=== PATIENT | female | born 1990 | race Caucasian/White ===

== ENCOUNTER → 2020-04-08 12:42 | Outpatient (ROUT) | payer OTHER, SELFPAY ==
[2020-04-08 13:13] LABS: T4 Total Thyroxine 8.19 ug/dL (5.5-11.0)
[2020-04-08 13:27] LABS: Thyroid Stimulating Hormone 2.45 uIU/mL (0.47-4.68)
== END ==
PROVIDERS: Visit Provider Nurse Practitioner Obstetrics & Gynecology
DX: E03.9 Hypothyroidism, unspecified (principal)
CPT/HCPCS: 84436; 84443

== ENCOUNTER → 2021-02-10 11:06 | Outpatient (CLI) | payer OTHER, SELFPAY ==
--- NOTE | 2021-02-10 11:11 | DI.RAD.S_ITS ---
PROCEDURE: XR SHOULDER LT MIN 2V INDICATIONS: SHOULDER PAIN TECHNIQUE: 3 views of the shoulder were acquired. COMPARISON: None. FINDINGS: Bones: No fractures or dislocations. No suspicious bony lesions. Visualized ribs appear intact. Soft tissues: No suspicious soft tissue calcifications. IMPRESSION: No acute abnormality. Dictated by: Joseph Boudreaux M.D. on 02/10/2021 at 11:53 Approved by: Joseph Boudreaux M.D. on 02/10/2021 at 11:54
== END ==
PROVIDERS: Referring Provider Family Medicine; Visit Provider Family Medicine
DX: M25.512 Pain in left shoulder (principal)
CPT/HCPCS: 73030

== ENCOUNTER → 2022-02-06 13:21 | Outpatient (CLI) | payer OTHER, SELFPAY ==
--- NOTE | 2022-02-06 13:24 | DI.US.S_ITS ---
ULTRASOUND OF LEFT BREAST AND AXILLA: 02/06/2022 CLINICAL: Palpable left breast lump. [facility] and real-time ultrasound of the left breast axilla were performed. Zavaleta scale images of the real-time examination were reviewed. There is a 2.2 cm x 1 cm x 2.3 cm wider than tall oval mass in the left breast at 9 o'clock in the retroareolar region 1 cm from the nipple. This oval mass is hypoechoic and heterogeneously echogenic with a well-defined boundary and no posterior acoustic shadowing or enhancement. This correlates as palpated, with mammography findings, and area of clinical concern. Color flow imaging demonstrates that there is vascularity present. No significant abnormalities were seen sonographically in the left axilla. IMPRESSION: SUSPICIOUS OF MALIGNANCY The 2.2 cm x 1 cm x 2.3 cm wider than tall oval mass in the left breast is at a low suspicion for malignancy. An ultrasound guided biopsy is recommended. Also, the patient will be scheduled to return for right breast ultrasound for a separate, incidental finding seen in the right breast on today's mammographic examination. Findings and recommendations were discussed with the patient by Dr. Wynn during today's examination. This exam was interpreted at Station ID: [id number]. Electronically Signed By: Cezar Stoner M.D. aty/:02/06/2022 15:57:38 letter sent: Biopsy Required Ultrasound BI-RADS: 4a Low suspicion for malignancy
--- NOTE | 2022-02-06 13:24 | DI.MG.S_ITS ---
BILATERAL DIGITAL DIAGNOSTIC MAMMOGRAM 3D/2D: 02/06/2022 CLINICAL: Left breast lump. Baseline. No prior exams were available for comparison. Both breasts are heterogeneously dense, which may obscure small masses (category c / 51-75% glandular tissue). There is a 0.9 cm oval equal density focal asymmetry in the right breast at 12 o'clock posterior depth. There is a 1.4 cm x 2.2 cm oval equal density mass with punctate calcifications in the left breast at 9 o'clock in the retroareolar region. This correlates as palpated, with area of clinical concern, and skin marker. No other significant masses or calcifications are seen in either breast. IMPRESSION: INCOMPLETE: NEEDS ADDITIONAL IMAGING EVALUATION The 1.4 cm x 2.2 cm oval equal density mass in the left breast at 9 o'clock in the retroareolar region correlates with palpable area of concern and is indeterminate. An ultrasound is recommended for further evaluation and is scheduled to immediately follow this examination. The 0.9 cm oval equal density focal asymmetry in the right breast at 12 o'clock posterior depth resembles a cyst or a lymph node and is indeterminate. An ultrasound is recommended for further evaluation but could not be accomplised today. This will be scheduled for a later date. This exam was interpreted at Station ID: [id number]. NOTE: For mammograms, a report in lay terms will be sent to the patient. Approximately 15% of breast malignancies will not be visualized mammographically. In the management of a palpable breast mass, a negative mammogram must not discourage biopsy of a clinically suspicious lesion. Electronically Signed By: Cezar Stoner M.D. aty/:02/06/2022 15:53:36 ACR BI-RADS Category 0: Incomplete 3340F
== END ==
PROVIDERS: Referring Provider Nurse Practitioner Obstetrics & Gynecology; Visit Provider Nurse Practitioner Obstetrics & Gynecology
DX: N63.22 Unspecified lump in the left breast, upper inner quadrant (principal); R92.8 Other abnormal and inconclusive findings on diagnostic imaging of breast
CPT/HCPCS: 76642; 77066; G0279

== ENCOUNTER → 2022-02-14 12:51 | Outpatient (CLI) | payer OTHER, SELFPAY ==
--- NOTE | 2022-02-14 | DI.US.S_ITS ---
LIMITED ULTRASOUND OF RIGHT BREAST AND AXILLA: 02/14/2022 CLINICAL: Patient returns today to evaluate an asymmetry in the right breast. Comparison is made to exam dated: 02/06/2022 mammogram - [facility]. Ultrasound of the right breast 12 o'clock, and axilla regions was performed. There is a 0.9 cm x 0.7 cm x 0.6 cm oval mass with a smooth internal wall in the right breast at 12 o'clock posterior depth 9 cm from the nipple. This mass is hypoechoic with a well-defined boundary and posterior acoustic enhancement. This correlates with mammography findings. Color flow imaging demonstrates that there is no vascularity present. No significant abnormalities were seen sonographically in the right axilla. IMPRESSION: PROBABLY BENIGN The 0.9 cm x 0.7 cm x 0.6 cm mass in the right breast most likely is a complicated cyst, less likely fibroadenoma, but is probably benign. A follow-up right ultrasound in 6 months is recommended to demonstrate stability. Findings and recommendations were conveyed to the patient at time of exam. This exam was interpreted at Station ID: [id number]. Electronically Signed By: Dorys ramirez/:02/14/2022 13:57:51 letter sent: Followup Recommended Ultrasound BI-RADS: 3 Probably benign
== END ==
PROVIDERS: Referring Provider Nurse Practitioner Obstetrics & Gynecology; Visit Provider Nurse Practitioner Obstetrics & Gynecology
DX: R92.8 Other abnormal and inconclusive findings on diagnostic imaging of breast; N63.15 Unspecified lump in the right breast, overlapping quadrants
CPT/HCPCS: 76642

== ENCOUNTER → 2022-03-06 14:18 | Outpatient (CLI) | payer OTHER, SELFPAY ==
--- NOTE | 2022-03-06 | PATH_ITS ---
[facility] Accession Number: [id number] No. of containers..01 Tissue . 01 Material submitted: . breast - LEFT BREAST 9:00 RETRPAREOLAR MASS . 01 Diagnosis: Left Breast, 9 o'clock, Retroareaolar, Image-Guided Core Biopsy: Benign fibroepithelial tumor, consistent with tubular adenoma. MRV 03/12/2022 1510 Local . 01 Comment: *Immunostains to p63, ER, and S100 are performed on block A1, with the controls stained appropriately. The tumor exhibits the following results: p63 shows positive staining around cell nests; estrogen receptor is variably positive; S100 is variably positive primarily on the peripheral cells. These findings support the morphologic suspicion of a tubular adenoma and strongly rule against involvement by an invasive carcinoma or a microglandular adenosis. . * This test was developed and its performance characteristics determined by [employer]. It has not been cleared or approved by the U.S. Food and Drug Administration. The FDA has determined that such clearance or approval is not necessary. This test is used for clinical purposes. It should not be regarded as investigational or for research. . 01 Electronically signed: . Amanda Cullen MD, Pathologist NPI- [id number] . 01 Gross description: . The specimen is received in formalin labeled with the patient's name, , and BX breast, and consists of multiple pale yellow soft tissue fragments aggregating to 1.9 x 1.3 x 0.2 cm. The specimen is filtered into a biopsy bag, inked green and submitted entirely in cassette A1. . The specimen was removed on 03/06/2022 at approximately 1506. Time in formalin not provided. Cold ischemic time cannot be calculated. Total fixation time is approximately 29 hours. ([id number]) /MRV 03/07/2022 1048 Local . 01 Pathologist provided ICD-10: N63.22 . 01 CPT . 547737, J95633, O07301 Specimen Comment: A courtesy copy of this report has been sent to [facility] Performed at: 01 [facility] [address] [place] [address], [place], [place] [id number] MD Geovanni Schwartz MD Phone: [phone]
--- NOTE | 2022-03-06 | DI.MG.S_ITS ---
UNILATERAL LEFT DIGITAL DIAGNOSTIC MAMMOGRAM 3D/2D POST-EXCISIONAL BIOPSY: 03/06/2022 CLINICAL: Left post clip. There is a biopsy marker in the area of biopsy in the left breast. IMPRESSION: POST PROCEDURE MAMMOGRAM FOR MARKER PLACEMENT A biopsy marker in the area of biopsy. This exam was interpreted at Station ID: [id number]. NOTE: For mammograms, a report in lay terms will be sent to the patient. Approximately 15% of breast malignancies will not be visualized mammographically. In the management of a palpable breast mass, a negative mammogram must not discourage biopsy of a clinically suspicious lesion. Electronically Signed By: Jael Wynn M.D. fx/:03/06/2022 15:38:10 ACR BI-RADS Category Post-procedure mammogram for marker placement
--- NOTE | 2022-03-06 | DI.US.S_ITS ---
ULTRASOUND GUIDED BIOPSY LEFT BREAST USING VACUUM DEVICE WITH POST MAMMOGRAPHIC AND ULTRASOUND IMAGIN03/06/2022 CLINICAL: Left breast mass. PATIENT CONSENT: Risks (minor bleeding, infection, vasovagal reaction and repeat procedure), benefits and alternatives were explained to the patient and written informed consent was obtained. Correlation is made to exams dated: 03/06/2022 mammogram, 02/06/2022 ultrasound, and 02/06/2022 mammogram - [facility]. An ultrasound guided biopsy using real-time ultrasound was performed for the abnormality located in the left breast at 9 o'clock anterior depth. The skin was prepped in the usual manner. A biopsy needle was placed adjacent to the abnormality under ultrasound guidance. Once the needle was documented to be in the correct location, a specimen was obtained using an automated biopsy gun. 5 samples were obtained. The specimen was sent to the laboratory for pathological analysis. IMPRESSION: ULTRASOUND GUIDED BIOPSY BENIGN Ultrasound guided biopsy of the mass in the left breast anterior depth was successful. 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 Pathology results are concordant with imaging findings. Return to annual mammogram screening schedule is recommended. Future imaging is recommended as follows: 08/16/2022 follow-up right ultrasound for a separate probably benign finding described in prior evaluation. This exam was interpreted at Station ID: [id number]. Jael Stoner M.D. fx,aty/:03/14/2022 11:14:19
== END ==
PROVIDERS: Referring Provider Nurse Practitioner Obstetrics & Gynecology; Visit Provider Nurse Practitioner Obstetrics & Gynecology
DX: D24.2 Benign neoplasm of left breast (principal)
CPT/HCPCS: 19083; 77065

== ENCOUNTER → 2022-12-26 08:07 | Outpatient (CLI) | payer OTHER, SELFPAY ==
[2022-12-26 09:03] LABS: Appearance Urine UA CLEAR; Bilirubin Urine UA 1+ (NEGATIVE); Color Urine UA YELLOW; Glucose Urine UA NEGATIVE (Negative); Ketones Urine UA TRACE (NEGATIVE); Leukocyte Esterase Urine UA 2+ (NEGATIVE); Nitrite Urine UA NEGATIVE (Negative); Occult Blood Urine UA NEGATIVE (Negative); Protein Urine UA TRACE (Negative); Specific Gravity Urine UA 1.015 (1.000-1.035)
[2022-12-26 09:12] LABS: Ictotest Urine Negative (Negative)
[2022-12-26 09:13] LABS: Bacteria Urine Many (>30); Culture Indicated Urine Specimen Cultured; RBC Urine 1-5/HPF (0-5/HPF); Squamous Epithelial Cell Urine 5-10 /HPF (0-5/HPF); WBC Urine 5-10/HPF (0-5/HPF)
== END ==
PROVIDERS: PCP Nurse Practitioner Obstetrics & Gynecology; Referring Provider Nurse Practitioner Obstetrics & Gynecology; Visit Provider Nurse Practitioner Obstetrics & Gynecology
DX: R30.0 Dysuria (principal)
CPT/HCPCS: 81001; 87086

== ENCOUNTER → 2023-01-30 07:48 | Outpatient (CLI) | payer OTHER, SELFPAY ==
--- NOTE | 2023-01-30 | DI.US.S_ITS ---
ULTRASOUND OF RIGHT BREAST: 01/30/2023 CLINICAL: Late 6 month follow-up of cysts. Comparison is made to exams dated: 02/14/2022 ultrasound and 02/06/2022 mammogram - [facility]. Color flow and real-time ultrasound of the right breast were performed. Zavaleta scale images of the real-time examination were reviewed. There is a 1 cm x 0.7 cm x 0.8 cm oval cyst with a smooth internal wall in the right breast at 12 o'clock posterior depth 9 cm from the nipple. This oval cyst is hypoechoic with a well-defined boundary and posterior acoustic enhancement. This abnormality is not significantly changed and correlates with mammography findings. Color flow imaging demonstrates that there is no vascularity present. IMPRESSION: PROBABLY BENIGN The 1 cm x 0.7 cm x 0.8 cm oval cyst in the right breast most likely is a complicated cyst versus fibroadenoma, and is probably benign. A follow-up right ultrasound in 6 months is recommended to demonstrate continued stability. Findings and recommendations were conveyed to the patient during today's evaluation. This exam was interpreted at Station ID: [id number]. Electronically Signed By: Cezar Stoner M.D. aty/:01/30/2023 08:38:50 letter sent: Followup Recommended Ultrasound BI-RADS: 3 Probably benign
== END ==
PROVIDERS: Referring Provider Nurse Practitioner Obstetrics & Gynecology; Visit Provider Nurse Practitioner Obstetrics & Gynecology
DX: N60.01 Solitary cyst of right breast (principal)
CPT/HCPCS: 76642

== ENCOUNTER → 2023-02-05 06:47 | Outpatient (CLI) | payer OTHER, SELFPAY ==
--- NOTE | 2023-02-05 | DI.US.S_ITS ---
PROCEDURE: US PELVIC COMPLETE INDICATIONS: PELVIC/PERINEAL PAIN TECHNIQUE: Real-time scanning was performed of the pelvic organs, with image documentation. Additional endovaginal scanning was necessary due to incomplete visualization of the adnexal and endometrial structures by transabdominal scanning. COMPARISON: None. FINDINGS: Uterus: Uterus is anteverted and normal in size at 7.2 x 3.2 x 4.1 cm. The myometrium is homogeneous. The endometrium measures 7.2 mm combined thickness. An indistinct hypoechoic mass in the posterior fundus mildly distorts the contour of the endometrium. The mass measures 1.1 x 0.9 x 1.3 cm. No increased vascularity. There are several nabothian cysts in the cervix. Ovaries: The right ovary measures 3.1 x 3.6 x 2.6 cm, with a calculated ovarian volume of 10 cc. The left ovary measures 1.9 x 2.7 x 1.9 cm, with a calculated ovarian volume of 5.0 cc. The ovaries have a normal sonographic appearance. Less than 12 follicles can be seen in each ovary. No adnexal masses are seen. Normal vascular flow seen in each ovary. Other: No pathologic free abdominal or pelvic fluid. IMPRESSION: 1. 1.1 cm posterior fundal fibroid. 2. The uterus and ovaries are otherwise normal. We strive to produce accurate, complete, and clear reports of imaging services. To assist us in improving patient care, this report was composed using standard report templates and voice recognition software. Therefore, it may contain abnormal punctuation, insertions and/or omissions. Occasional wrong-word or sound-alike substitutions may occur. Though we review the report and make efforts to correct it, we do recommend that the report be read carefully in proper context to recognize any text inaccuracies. Dictated by: Dorys Pickering M.D. on 02/05/2023 at 10:46 Approved by: Dorys Pickering M.D. on 02/05/2023 at 10:48
== END ==
PROVIDERS: Referring Provider Advanced Practice Midwife; Visit Provider Advanced Practice Midwife
DX: R10.2 Pelvic and perineal pain (principal); R10.30 Lower abdominal pain, unspecified; D25.9 Leiomyoma of uterus, unspecified
CPT/HCPCS: 76830; 76856; 93975

== ENCOUNTER → 2023-04-19 07:42 | Outpatient (CLI) | payer OTHER, SELFPAY ==
[2023-04-19 09:42] LABS: Folate 5.6 ng/mL (2.76-20.0); Vitamin B12 > 1000 pg/mL (239-931)
[2023-04-19 23:22] LABS: Homocysteine 10.1 umol/L (0.0-14.5)
[2023-04-24 09:24] LABS: Methylmalonic Acid,Serum 88 nmol/L (0-378)
== END ==
PROVIDERS: Referring Provider Specialist; Visit Provider Specialist
DX: E53.8 Deficiency of other specified B group vitamins (principal); R53.83 Other fatigue; E06.3 Autoimmune thyroiditis
CPT/HCPCS: 36415; 82607; 82746; 83090; 83921

== ENCOUNTER → 2023-10-30 07:46 | Outpatient (CLI) | payer OTHER, SELFPAY ==
--- NOTE | 2023-10-30 | DI.US.S_ITS ---
LIMITED ULTRASOUND OF RIGHT BREAST: 10/30/2023 CLINICAL: 6 month follow-up of cysts. Comparison is made to exams dated: 01/30/2023 ultrasound, 02/14/2022 ultrasound, 02/06/2022 mammogram, and 03/06/2022 ultrasound [facility]. Color flow and real-time ultrasound of the right breast 9 o'clock and 12 o'clock regions were performed. Zavaleta scale images of the real-time examination were reviewed. There is a stable 1 cm x 0.9 cm x 0.7 cm oval mass with a circumscribed margin in the right breast at 12 o'clock posterior depth 9 cm from the nipple. This oval mass is hypoechoic with posterior acoustic enhancement. This correlates with mammography findings. Color flow imaging demonstrates that there is no vascularity present. IMPRESSION: PROBABLY BENIGN The stable 1 cm circumscribed mass in the right breast resembles a fibroadenoma or complicated cyst and is probably benign. A follow-up ultrasound in 6 months is recommended to demonstrate long-term stability. Exam findings were conveyed to the patient. This exam was interpreted at Station ID: [id number]. Electronically Signed By: Vic Osborne M.D. slc/:10/30/2023 08:32:03 letter sent: Followup Recommended Ultrasound BI-RADS: 3 Probably benign
== END ==
LOC: US 07:47
PROVIDERS: Referring Provider Nurse Practitioner Obstetrics & Gynecology; Visit Provider Nurse Practitioner Obstetrics & Gynecology
DX: N63.11 Unspecified lump in the right breast, upper outer quadrant (principal)
CPT/HCPCS: 76642

== ENCOUNTER → 2024-07-13 07:42 | Outpatient (CLI) | payer OTHER, SELFPAY ==
--- NOTE | 2024-07-13 07:44 | DI.US.S_ITS ---
US breast RT limited: 07/13/2024. BI-RADS: 4A CLINICAL: 34-year old female for right diagnostic breast ultrasound. The patient presents for short interval follow-up. Tyrer-Cuzick lifetime risk of 9.8%. PRIOR EXAMS 10/30/2023, 01/30/2023, 03/06/2022, 02/14/2022, 02/06/2022. ULTRASOUND TECHNIQUE Real-time lopez scale and color doppler imaging of the area of clinical interest was performed with image documentation. TARGETED Right Breast Ultrasound: Real-time ultrasound exam was performed focused to area of clinical and/or imaging concern. ULTRASOUND FINDINGS Right: Upper at 12:00, 9 cm from nipple, measuring 1 x 1.3 x 0.7 cm, previously measuring 1 x 0.9 x 0.7 cm: There is a hypoechoic mass that is parallel. Doppler shows no vascularity. There is a new lobulation of the margin of the mass compared to prior ultrasound from 10/30/2023. Right: Outer at 9:00, 9 cm from nipple, measuring 1 x 0.6 x 0.4 cm: There is a complicated cyst present. This finding is compatible with benign clustered microcysts, previously measuring 1.8 x 0.7 x 0.7 cm on 02/14/2022. IMPRESSION: Right (Mass): Upper at 12:00, 9 cm from nipple, measuring 1 x 1.3 x 0.7 cm, previously measuring 1 x 0.9 x 0.7 cm * Low Suspicion for Malignancy. RECOMMENDATIONS Right: Upper at 12:00, 9 cm from nipple * Ultrasound-guided biopsy for further evaluation. COMMENTS: Findings and recommendations were conveyed to the patient by Dr. Powell over the phone during today's evaluation. The patient also raised the concern of new left breast pain at the site of her prior benign biopsy which revealed a fibroepithelial lesion with a tubular adenoma. The patient was advised to obtain a referral for bilateral diagnostic mammogram and left breast ultrasound to further evaluate the new symptoms. Ideally, these studies should be performed before the ultrasound guided biopsy of the right breast, however any scheduling issues should not unnecessarily delay the right ultrasound guided biopsy. OVERALL ASSESSMENT CATEGORY BI-RADS-4: Suspicious. ELECTRONICALLY SIGNED: Lamar Powell M.D. on 07/13/2024 at 09:21:17 AM PT Interpreting Station ID: [id number]
== END ==
PROVIDERS: Referring Provider Nurse Practitioner Obstetrics & Gynecology; Visit Provider Nurse Practitioner Obstetrics & Gynecology
DX: N63.15 Unspecified lump in the right breast, overlapping quadrants (principal); N60.01 Solitary cyst of right breast
CPT/HCPCS: 76642